=== PATIENT | female | born 1945 | race Caucasian/White ===

== ENCOUNTER → 2023-10-13 | Outpatient (CLI) | payer MEDICARE, OTHER ==
[~2023-10-13] MED LIST: Aspir 8181 MG PO; CALCITONIN-SAL3.7 M5; CEFD300 PO; CIPR250 PO; ESCITALOPRAM OXA5 MG PO; FOSAMAX70 MG PO; GLUCOPHAGE1000 M1 PO; LIPITOR80 MG PO; OXYCODONE-ACET1 EAC3 PO; PLAVIX75 MG PO; Vitamin D1000 UNI1 PO
== END ==
LOC: LAB 15:40 → LAB SHORT 15:40
DX: R30.0 Dysuria (principal)
CPT/HCPCS: 87077; 87086; 87186

== ENCOUNTER 2023-10-15 11:25 | Observation (INO) | payer MEDICARE, OTHER ==
[~2023-10-15] VITALS: Ht 147.3 cm; Wt 41.5 kg
[2023-10-15 12:25] LABS: BASOPHILS ABSOLUTE AUTO 0.06 K/mm3 (0.00-0.23); BASOPHILS PERCENT AUTO 1 % (0-2); EOSINOPHILS ABSOLUTE AUTO 0.06 K/mm3 (0.00-0.68); EOSINOPHILS PERCENT AUTO 1 % (0-6); Hematocrit 41.6 % (33.0-51.0); Hemoglobin 14.5 g/dL (11.5-16.0); IMMATURE GRAN ABSOLUTE AUTO 0.02 K/mm3 (0.00-0.10); IMMATURE GRAN PERCENT AUTO 0 % (0-1); LYMPHOCYTES ABSOLUTE AUTO 1.36 K/mm3 (0.84-5.20); LYMPHOCYTES PERCENT AUTO 16 % (21-46); MONOCYTES ABSOLUTE AUTO 0.44 K/mm3 (0.16-1.47); MONOCYTES PERCENT AUTO 5 % (4-13); Mean Corpuscular HGB 31.3 pg (26.0-34.0); Mean Corpuscular HGB Conc 34.9 g/dL (31.5-36.5); Mean Corpuscular Volume 90 fL (80-100); Mean Platelet Volume 11.3 fL (9.1-12.4); NEUTROPHILS ABSOLUTE AUTO 6.39 K/mm3 (1.96-9.15); NEUTROPHILS PERCENT AUTO 77 % (41-73); Platelet Count 283 K/mm3 (150-400); RDW Coefficient Variation 12.4 % (11.7-14.2); RDW Standard Deviation 40.5 fL (35.1-46.3); Red Blood Cell Count 4.63 M/mm3 (3.80-5.20); White Blood Cell Count 8.33 K/mm3 (4.00-11.30)
[2023-10-15 12:44] LABS: Alanine Aminotransfer (ALT/SGP 42 U/L (12-78); Albumin/Globulin Ratio 1.2 (0.8-1.8); Alk Phos 70 U/L (50-136); Anion Gap 10 mmol/L (6-16); Aspartate Aminotrans (AST/SGOT 27 U/L (12-37); Bilirubin, Total 0.6 mg/dL (0.1-1.0); Blood Urea Nitrogen 11 mg/dL (8-24); CO2, Blood 26 mmol/L (21-32); Calcium, Blood 10.5 mg/dL (8.5-10.1); Chloride, Blood 94 mmol/L (98-108); Creatinine, Blood 0.44 mg/dL (0.40-1.00); Ethanol (Alcohol), Blood, Med <3 mg/dL; Globulin, Blood 3.2 g/dL (2.2-4.0); Glomerular Filtration Rate 100 (60-); Glucose, Blood 177 mg/dL (70-99); Potassium, Blood 3.8 mmol/L (3.5-5.5); Sodium, Blood 130 mmol/L (136-145); Total Protein, Blood 7.2 g/dL (6.4-8.2)
[2023-10-15 12:50] LABS: International Normalized Ratio 1.03; Prothrombin Time Results 10.8 Sec (9.7-11.5)
[2023-10-15 15:02] LABS: Source, Urine Fem Cath
[2023-10-15 15:03] LABS: U Amphetamine Screen Not Detected; U Barbituate Screen Not Detected; U Benzodiazapine Screen Not Detected; U Buprenorphine Screen Not Detected; U Cannabinoids Screen Not Detected; U Cocaine Screen Not Detected; U Methadone Screen Not Detected; U Methamphetamine Screen Not Detected; U Opiates Screen Not Detected; U Oxycodone Screen Not Detected; U Phencyclidine Screen Not Detected
[2023-10-15 15:05] LABS: Appearance, Urine Clear (Clear); Bilirubin, Urine Neg (Neg); Blood, Urine Neg (Neg); Color, Urine Yellow (P-Yellow); Glucose Qualitative, Urine Neg (Neg); Ketones, Urine 3+ (Neg); Leukocyte Esterase, Urine Neg (Neg); Nitrite, Urine Neg (Neg); Protein, Urine Neg (Neg); Specific Gravity, Urine 1.015 (1.003-1.022); Urobilinogen, Urine NORM (Normal)
[2023-10-15 19:33] VITALS: BP 142/88
[2023-10-15] MEDS ORDERED: PLAVIX75 MG PO (20:34)
[2023-10-15] MEDS ORDERED: Aspir 8181 MG PO (20:34)
[2023-10-15] MEDS ORDERED: LIPITOR80 MG PO (20:35)
[2023-10-15] MEDS ORDERED: GLUCOPHAGE1000 M1 PO (20:36)
[2023-10-15] MEDS ORDERED: CALCITONIN-SAL3.7 M5 (20:38)
[2023-10-15] MEDS ORDERED: OXYCODONE-ACET1 EAC3 PO (20:38)
[2023-10-15] MEDS ORDERED: FOSAMAX70 MG PO (20:39)
[2023-10-15] MEDS ORDERED: ESCITALOPRAM OXA5 MG PO (20:39)
[2023-10-15] MEDS ORDERED: CIPR250 PO (20:40)
[2023-10-16 02:46] VITALS: BP 147/86
--- NOTE | 2023-10-16 04:48 | NUR ---
Shift Assessment Patient was brought to the room on a strecher from the ER. Her daughter was present. She said that her mother had a change in mental status this morning. She has a history of having a stroke in the past and has some expressive and receptive aphasia. She is able to speak. Patient is cooperative and follows instructions. Her daughter said that she will get agitated at times if she needs to go to the bathroom. Respirations are regular and unlabored on room air. She is able to move all extremites. She ambulated to the bathroom with standby assist. She does not use the call light and attempts to get up and go to the bathroom unassisted. A bed alarm is in place. Patient's daughter says that she ambulates independently at home. 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 Her appetite has not been good but her daughter requested that she not be given any liquid supplements because they cause her to have diarrhea. She said high calorie food is okay. Patient's daughter is a district representative. Ms. Keen is a little hard of hearing and usually wears hearing aids in both ears. Her daughter took her glasses and hearing aids home with her. Call light is in reach. Bed in low position.
[2023-10-16 07:12] VITALS: BP 156/90
[2023-10-16] MEDS ORDERED: Vitamin D1000 UNI1 PO (14:31)
[2023-10-16] MEDS ORDERED: CEFD300 PO (14:31)
--- NOTE | 2023-10-16 15:08 | NUR ---
SHIFT/DISCHARGE SUMMARY: PATIENT A/O TO SELF, PERSON, PLACED AND DATES. PATIENT IS CALM, PLEASANT AND SLOW TO RESPOND IT TAKES TIME TO REMINISCE, BUT ANSWER TO QUESTIONS APPROPRIATELY IN A FULL SENTENCES. PATIENT HAS NO SIGNS OF FACIAL DROOPED WHEN ASKED TO SMILE. PATIENT SENSATIONS INTACT AND STRENGTH ARE EQUALL TO ALL EXTREMITIES c NO SIGNS OF DEFICIT. PATIENT ON TELE, SR HR IN THE MID TO HIGH 80'S BPM. PATIENT DENIES CP/PRESSURE, N/V, SOB, DIAPHORETIC, DIZZINESS AND GENERALIZED PAIN. PATIENT IS CONTINENCE OF BOWELS/BLADDER, AMBULATES TO BATHROOM/BACK IN BED c SBA. PATIENT WAS SEEN c PT FOR EVAL THIS AM. PATIENT DAUGHTER (ALCON) REQUESTED OUTPATIENT REHAB INSTEAD OF HHS. PATIENT HAD ECHO DONE TODAY c NO RESULT YET. PATIENT DAUGHTER (ALCON) REQUESTED TO HAVE PATIENT DISCHARGE TODAY. ALCON STATED UNDERSTANDING "IT'S OKAY, I CAN ACCESS ALL THE RESULT THROUGH PATIENT PORTAL." DISCUSSED c DR. MACK. PATIENT RECEIVED IV ABX AND SCHEDULED MEDS PER EMAR. VITAL SIGNS REVIEWED. PIV TO L WRIST/AC DC'D. PATIENT DISCHARGE HOME. DISCHARGE INSTRUCTIONS PACKET GIVEN TO PATIENT/DAUGHTER. EDUCATE PATIENT/DAUGHTER REGARDING ADMITTING DX'S OF STROKE, S/S, STROKE PREVENTION, NEW PRESCRIBED RX, SELF CARE, AND TO FOLLOW UP c PCP. PATIENT/DAUGHTER VERBALIZED UNDERSTANDING AND NO FURTHER QUESTIONS. RX WAS FAXED TO PATIENT PREFERRED PHARMACY ([facility]). ALL PATIENT PERSONAL BELONGINGS WERE SENT HOME c THE PATIENT. PATIENT LEFT THE ROOM AT 1505 AND WAS TRANSPORTED VIA WHEELCHAIR BY PRODUCT REPRESENTATIVE STAFFJOHAN TO PATIENT ENTRANCE.
== END 2023-10-16 15:05 | disposition home or self-care (01) ==
LOC: ER 11:25 → MEDS 16:03
PROVIDERS: Student in an Organized Health Care Education/Training Program; ADMIT Internal Medicine
DX: I69.321 Dysphasia following cerebral infarction (principal); N39.0 Urinary tract infection, site not specified; E11.9 Type 2 diabetes mellitus without complications; Z88.2 Allergy status to sulfonamides; Z72.0 Tobacco use
CPT/HCPCS: 70450; 70496; 70498; 70551; 80053; 81003; 82947; 85025; 85610; 85730; 93005; 93010; 93306; 97110; 97116; 97161; A9270; J0696; P9612; Q9967

== ENCOUNTER 2024-05-05 16:35 | Emergency (ER) | payer MEDICARE, OTHER ==
[~2024-05-05] VITALS: Ht 147.3 cm; Wt 41.7 kg
[2024-05-05] MEDS ORDERED: ESTRADIOL42.5 GM VG (17:27)
[2024-05-05] MEDS ORDERED: DONEPEZIL HCL5 M2 PO (17:27)
[2024-05-05] MEDS ORDERED: ZYRTEC10 M2 PO (17:28)
[2024-05-05 17:38] LABS: BASOPHILS ABSOLUTE AUTO 0.04 K/mm3 (0.00-0.23); BASOPHILS PERCENT AUTO 1 % (0-2); EOSINOPHILS ABSOLUTE AUTO 0.12 K/mm3 (0.00-0.68); EOSINOPHILS PERCENT AUTO 2 % (0-6); Hemoglobin 12.3 g/dL (11.5-16.0); IMMATURE GRAN ABSOLUTE AUTO 0.01 K/mm3 (0.00-0.10); IMMATURE GRAN PERCENT AUTO 0 % (0-1); LYMPHOCYTES ABSOLUTE AUTO 0.81 K/mm3 (0.84-5.20); LYMPHOCYTES PERCENT AUTO 11 % (21-46); MONOCYTES ABSOLUTE AUTO 0.51 K/mm3 (0.16-1.47); MONOCYTES PERCENT AUTO 7 % (4-13); Mean Corpuscular HGB Conc 34.2 g/dL (31.5-36.5); Mean Corpuscular Volume 94 fL (80-100); Mean Platelet Volume 10.4 fL (9.1-12.4); NEUTROPHILS ABSOLUTE AUTO 5.62 K/mm3 (1.96-9.15); NEUTROPHILS PERCENT AUTO 79 % (41-73); Platelet Count 198 K/mm3 (150-400); RDW Standard Deviation 41.9 fL (35.1-46.3); Red Blood Cell Count 3.84 M/mm3 (3.80-5.20); White Blood Cell Count 7.11 K/mm3 (4.00-11.30)
[2024-05-05 17:44] LABS: Source, Urine Clean Catch
[2024-05-05 17:47] LABS: Appearance, Urine Clear (Clear); Bilirubin, Urine Neg (Neg); Blood, Urine 2+ (Neg); Color, Urine Yellow (P-Yellow); Glucose Qualitative, Urine 2+ (Neg); Ketones, Urine 3+ (Neg); Leukocyte Esterase, Urine Neg (Neg); Nitrite, Urine Neg (Neg); Protein, Urine Neg (Neg); Specific Gravity, Urine 1.015 (1.003-1.022); Urobilinogen, Urine NORM (Normal); pH, Urine 6.5 (5.0-8.0)
[2024-05-05 18:00] LABS: Bacteria Few /hpf; Squamous Epithelial Cells Few /hpf (Few); White Blood Cells, Urine 0-2 /hpf (0-5)
[2024-05-05 18:01] LABS: Renal Epithelial Rare /hpf (0-Rare)
[2024-05-05 18:01] LABS: Albumin, Blood 3.2 g/dL (3.4-5.0); Bun/Creatinine Ratio 26.5 (12.0-20.0); Calcium, Blood 9.7 mg/dL (8.5-10.1); Creatinine, Blood 0.42 mg/dL (0.40-1.00); Globulin, Blood 3.2 g/dL (2.2-4.0); Magnesium, Blood 1.7 mg/dL (1.6-2.4); Potassium, Blood 4.1 mmol/L (3.5-5.5); Total Protein, Blood 6.4 g/dL (6.4-8.2)
[2024-05-05] MEDS ORDERED: NS 1,000 ML IV SCH (18:40)
[2024-05-05 19:00] VITALS: BP 151/73
== END 2024-05-05 19:55 | disposition home or self-care (01) ==
LOC: ER 16:35
PROVIDERS: Physician Assistant
DX: R41.0 Disorientation, unspecified (principal); F05 Delirium due to known physiological condition; E11.9 Type 2 diabetes mellitus without complications; Z88.1 Allergy status to other antibiotic agents; Z88.2 Allergy status to sulfonamides; Z79.899 Other long term (current) drug therapy; Z79.82 Long term (current) use of aspirin; Z79.84 Long term (current) use of oral hypoglycemic drugs
CPT/HCPCS: 51701; 80053; 81001; 83690; 83735; 85025; J7030